=== PATIENT | female | born 1975 | race Caucasian/White ===

== ENCOUNTER → 2016-10-19 | Outpatient (CLI) | payer OTHER | END | disposition home or self-care (01) | LOC: PTH.S 13:53 | DX: R19.7 Diarrhea, unspecified (principal) ==

== ENCOUNTER → 2016-10-21 | Outpatient (CLI) | payer OTHER | END | disposition home or self-care (01) | LOC: RAD.S 08:40 | DX: Z12.31 Encounter for screening mammogram for malignant neoplasm of breast (principal) ==